=== PATIENT | male | born 1995 | race Caucasian/White ===

== ENCOUNTER 2022-11-30 21:15 | Emergency (ER) | payer OTHER, SELFPAY ==
[2022-11-30 21:26] VITALS: PULSE 103; RESP 16; TEMP 36.4; O2SAT 97; BMI 21.8
--- NOTE | 2022-11-30 21:36 | CT_ITS ---
[address] [address] Patient Name: JULEE MOISE MRN: [id number] date: 1995 Sex: M Assigned Patient Location: ER Current Patient Location: ER Accession/Order Number: [id number] Exam Date: 11/30/2022 22:25 Report Date: 11/30/2022 22:49 At the request of: ISAAC CHAPPELL Procedure: CT abdomen pelvis wo con EXAM: CT abdomen pelvis wo con HISTORY: left flank pain, difficulty urinating COMPARISON: None. TECHNIQUE: Axial CT imaging was performed through the abdomen and pelvis without intravenous contrast. Multiplanar reformats were performed. Dose reduction techniques were achieved by using automated exposure control and/or adjustment of mA and/or kV according to patient size and/or use of iterative reconstruction technique. FINDINGS: Lung bases: Lung bases are clear. No pleural effusion. GI upper: Unremarkable. Liver: Normal size and contour. Gallbladder: No significant abnormality. No cholelithiasis. Biliary system: No intra or extrahepatic biliary ductal dilatation. Pancreas: Unremarkable. Spleen: Normal size. Adrenal glands: Normal adrenal glands. Kidneys/ureters: There is mild left hydronephrosis and mild left hydroureter associated with a 3 mm calculus in the distal left ureter, just proximal to the bladder trigone. No additional intrarenal calculus is identified. No right nephrolithiasis. Vessels: No aneurysm. Retroperitoneum: No lymphadenopathy. Small bowel: No wall thickening or dilatation. Colon: No wall thickening or dilatation. Appendix: No findings of appendicitis. Peritoneal cavity: No free fluid or pneumoperitoneum. Lower : Unremarkable. Bones: No acute bony abnormality. Soft tissues: No acute finding. Additional findings: None. IMPRESSION: 3 mm distal left ureteral calculus with mild upstream obstructive changes. Electronically authenticated by: Jen ARROYO Date: 11/30/2022 22:49
--- NOTE | 2022-11-30 21:40 | ED_ITS ---
HPI - Abdominal Pain General Chief Complaint: Abdominal Pain Stated Complaint: ABD PAIN Time Seen by Provider: 11/30/22 21:27 Source: patient Mode of arrival: walk-in Limitations: no limitations History of Present Illness HPI narrative: patient suddenly developed pain along the left lower abdomen a couple of hours ago. He said that he saw blood in his urine and now it feels like my bladder is going to explode . Pain is severe and radiates from the left lower abdomen into the left flank. No fever or chills. No nausea or vomiting. No prior history of similar symptoms and no prior history of kidney stones. He drank alcohol and smoked marijuana to try and treat the pain. Related Data Previous Rx's Medication Instructions Recorded ketorolac 10 mg tablet 10 mg PO Q8H PRN pain #14 tabs 11/30/22 ondansetron 4 mg disintegrating 4 mg PO Q6H PRN nausea and 11/30/22 tablet vomiting #20 tabs tamsulosin 0.4 mg capsule 0.4 mg PO TID #14 caps 11/30/22 Allergies Allergy/AdvReac Type Severity Reaction Status Date / Time No Known Drug Allergies Allergy Verified 11/30/22 21:30 PFSH [facility] Social History Smoking status: Current every day smoker Exam Narrative Exam Narrative: Nurses notes and vital signs reviewed and patient is not hypoxic. afebrile General: Uncomfortable and moderately distressed. Skin: Warm, dry, no pallor noted. No rash to abdomen or flank. Eye: Pupils are equal, round and EOMI. No scleral icterus. Cardiovascular: Regular Rate and Rhythm without murmur, gallop or rub. Respiratory: No accessory muscle use or respiratory distress. Lungs are clear to auscultation, no wheezing, rales or rhonchi Back: No midline thoracic or lumbar vertebral tenderness. Left CVA tenderness Musculoskeletal: normal ROM, no calf or popliteal tenderness, no lower extremity edema/swelling GI: Abdomen is soft, non-distended. Normal bowel sounds. No masses appreciated. LLQ tenderness to palpation. No rebound, guarding, or rigidity noted. Neurological: A&O x4. No cranial nerve dysfunction observed. No truncal ataxia. Moves all extremities. Sensation intact. Psychiatric: Cooperative and interactive. Normal mood and affect. Constitutional Vital Signs - 24 hr 11/30/22 21:26 Temperature 97.5 F L Pulse Rate [Monitor] 103 H Respiratory Rate 16 Pulse Oximetry 97 Oxygen Delivery Method Room Air Course Vital Signs Vital signs: Vital Signs Temperature 97.5 F L 11/30/22 21:26 Pulse Rate 103 H 11/30/22 21:26 Respiratory Rate 16 11/30/22 21:26 Pulse Oximetry 97 11/30/22 21:26 Oxygen Delivery Method Room Air 11/30/22 21:26 Temperature 97.5 F L 11/30/22 21:26 Pulse Rate 103 H 11/30/22 21:26 Respiratory Rate 16 11/30/22 21:26 Pulse Oximetry 97 11/30/22 21:26 Oxygen Delivery Method Room Air 11/30/22 21:26 MDM - Abdominal Pain MDM Narrative Medical decision making narrative: peripheral IV established. The patient was ordered to receive IV Dilaudid and Toradol along with IV Zofran. CT revealed a 3mm distal left ureteral stone with upstream obstructive changes Afebrile, normal WBC< normal renal function, blood but no infection in urine Informed of results and discharged home with prescriptions for Flomax, Toradol, [place] and Zofran. referred to urologist for follow up. Lab Data Attestation: I reviewed the patient's lab results. Labs: Lab Results 11/30/22 11/30/22 Range/Units 21:35 21:51 WBC 10.0 (4.0-11.0) 10^3/uL RBC 4.86 (4.70-6.10) 10^6/uL Hgb 15.1 (14.0-18.0) g/dL Hct 42.7 (42.0-54.0) % MCV 87.9 (80.0-94.0) fL MCH 31.1 (25.9-34.0) pg MCHC 35.4 H (29.9-35.2) g/dL RDW 12.8 (11.0-15.0) % Plt Count 319 (150-450) 10^3/uL MPV 11.5 (9.5-13.5) fL Neut % (Auto) 53.1 (43.0-75.0) % Lymph % (Auto) 37.1 (20.5-60.0) % [place] % (Auto) 7.9 (1.7-12.0) % Eos % (Auto) 1.1 (0.9-7.0) % Baso % (Auto) 0.6 (0.2-2.0) % Neut # (Auto) 5.3 (1.4-6.5) 10^3/uL Lymph # (Auto) 3.7 (1.2-3.8) 10^3/uL [place] # (Auto) 0.8 (0.3-0.8) 10^3/uL Eos # (Auto) 0.1 (0.0-0.7) 10^3/uL Baso # (Auto) 0.1 (0.0-0.1) 10^3/uL Abs Immat Gran (auto) 0.02 (0.00-0.03) 10^3/uL Imm/Tot Granulo (auto) 0.2 (0.0-0.5) % Sodium 137 (136-145) mmol/L Potassium 3.6 (3.5-5.1) mmol/L Chloride 102 (98-107) mmol/L Carbon Dioxide 26.3 (21.0-32.0) mmol/L Anion Gap 12.3 BUN 18.0 (7.0-18.0) mg/dL Creatinine 1.18 (0.70-1.30) mg/dL Est GFR ( Amer) >60 (>=60) Est GFR (Non-Af Amer) >60 (>=60) BUN/Creatinine Ratio 15.3 Glucose 86 (74-106) mg/dL Calcium 9.5 (8.5-10.1) mg/dL Total Bilirubin 0.4 (0.2-1.0) mg/dL AST 22 (15-37) U/L ALT 29 (16-63) U/L Alkaline Phosphatase 123 H (46-116) U/L Total Protein 8.3 H (6.4-8.2) g/dL Albumin 4.6 (3.4-5.0) g/dL Globulin 3.7 g/dL Albumin/Globulin Ratio 1.2 Urine Color Yellow (YELLOW) Urine Clarity Clear (CLEAR) Urine pH 5.5 (5.0-9.0) Ur Specific Carbon >=1.030 A (1.005-1.025) Urine Protein Trace (NEG/TRACE) mg/dL Urine Glucose (UA) Negative (NEGATIVE) mg/dL Urine Ketones Negative (NEGATIVE) mg/dL Urine Occult Blood Large A (NEGATIVE) Urine Nitrite Negative (NEGATIVE) Urine Bilirubin Negative (NEGATIVE) Urine Urobilinogen 1.0 (0.2-1.0) EU/dL Ur Leukocyte Esterase Negative (NEGATIVE) Urine RBC 5-10 A (0-2) #/HPF Urine WBC 0-2 A (NONE SEEN) #/HPF Ur Squamous Epith Cells None seen (NONE/RARE) #/LPF Urine Crystals Seen A (None Seen) #/HPF Calcium Oxalate Crystal Rare Urine Bacteria None seen (NONE SEEN) #/HPF Urine Casts None seen (NONE SEEN) #/LPF Urine Mucus None seen (NONE SEEN) Ur Culture Indicated? No Imaging Data ct abd/pelvis: Radiologist's impression: Patient Name: JULEE MOISE MRN: [id number] date: 1995 Sex: M Assigned Patient Location: ER Current Patient Location: ER Accession/Order Number: [id number] Exam Date: 11/30/2022 22:25 Report Date: 11/30/2022 22:49 At the request of: ISAAC CHAPPELL Procedure: CT abdomen pelvis wo con EXAM: CT abdomen pelvis wo con HISTORY: left flank pain, difficulty urinating COMPARISON: None. TECHNIQUE: Axial CT imaging was performed through the abdomen and pelvis without intravenous contrast. Multiplanar reformats were performed. Dose reduction techniques were achieved by using automated exposure control and/or adjustment of mA and/or kV according to patient size and/or use of iterative reconstruction technique. FINDINGS: Lung bases: Lung bases are clear. No pleural effusion. GI upper: Unremarkable. Liver: Normal size and contour. Gallbladder: No significant abnormality. No cholelithiasis. Biliary system: No intra or extrahepatic biliary ductal dilatation. Pancreas: Unremarkable. Spleen: Normal size. Adrenal glands: Normal adrenal glands. Kidneys/ureters: There is mild left hydronephrosis and mild left hydroureter associated with a 3 mm calculus in the distal left ureter, just proximal to the bladder trigone. No additional intrarenal calculus is identified. No right nephrolithiasis. Vessels: No aneurysm. Retroperitoneum: No lymphadenopathy. Small bowel: No wall thickening or dilatation. Colon: No wall thickening or dilatation. Appendix: No findings of appendicitis. Peritoneal cavity: No free fluid or pneumoperitoneum. Lower : Unremarkable. Bones: No acute bony abnormality. Soft tissues: No acute finding. Additional findings: None. IMPRESSION: 3 mm distal left ureteral calculus with mild upstream obstructive changes. Electronically authenticated by: Jen ARROYO Date: 11/30/2022 22:49 Discharge Plan Discharge Chief Complaint: Abdominal Pain Clinical Impression: Calculus of distal left ureter, Renal colic on left side Patient Disposition: Home, Self-Care Time of Disposition Decision: 23:07 Prescriptions / Home Meds: New ketorolac 10 mg tablet 10 mg PO Q8H PRN (Reason: pain) Qty: 14 0RF ondansetron 4 mg tablet,disintegrating 4 mg PO Q6H PRN (Reason: nausea and vomiting) Qty: 20 0RF tamsulosin 0.4 mg capsule 0.4 mg PO TID Qty: 14 0RF Instructions: Ureteral Stones (ED) Stand Alone Forms: Portal Instructions
[2022-11-30] MEDS: 0.9 % SODIUM CHLORIDE 1,000 ML 999 ML IV (21:46)
[2022-11-30] MEDS: HYDROMORPHONE HCL 1 MG/ML CARTRIDGE IVP (21:47)
[2022-11-30] MEDS: ONDANSETRON PF 4 MG/2 ML VIAL IV (21:47)
[2022-11-30] MEDS: KETOROLAC TROMETHAMINE 30 MG/ML VIAL IVP (21:47)
[2022-11-30 22:01] LABS: Basophils Absolute Auto 0.1 10^3/uL (0.0-0.1); Basophils Percent Auto 0.6 % (0.2-2.0); Eosinophils Absolute Auto 0.1 10^3/uL (0.0-0.7); Eosinophils Percent Auto 1.1 % (0.9-7.0); Hematocrit 42.7 % (42.0-54.0); Hemoglobin 15.1 g/dL (14.0-18.0); Immature Granulocytes Abs Auto 0.02 10^3/uL (0.00-0.03); Immature Granulocytes Pct Auto 0.2 % (0.0-0.5); Lymphocytes Absolute Auto 3.7 10^3/uL (1.2-3.8); Lymphocytes Percent Auto 37.1 % (20.5-60.0); Mean Corpuscular HGB Conc 35.4 g/dL (29.9-35.2); Mean Corpuscular Hemoglobin 31.1 pg (25.9-34.0); Mean Corpuscular Volume 87.9 fL (80.0-94.0); Mean Platelet Volume 11.5 fL (9.5-13.5); Monocytes Absolute Auto 0.8 10^3/uL (0.3-0.8); Monocytes Percent Auto 7.9 % (1.7-12.0); Neutrophils Absolute Auto 5.3 10^3/uL (1.4-6.5); Neutrophils Percent Auto 53.1 % (43.0-75.0); Platelet Count 319 10^3/uL (150-450); Red Blood Count 4.86 10^6/uL (4.70-6.10); Red Cell Distribution Width 12.8 % (11.0-15.0)
[2022-11-30 22:05] LABS: Bilirubin Urine NEGATIVE (NEGATIVE); Blood Urine LARGE (NEGATIVE); Clarity Urine CLEAR (CLEAR); Color Urine YELLOW (YELLOW); Glucose Urine UA NEGATIVE (NEGATIVE); Ketones Urine NEGATIVE (NEGATIVE); Leukocyte Esterase Urine NEGATIVE (NEGATIVE); Nitrite Urine NEGATIVE (NEGATIVE); Protein Urine TRACE mg/dL (NEG/TRACE); Specific Gravity Urine >=1.030 (1.005-1.025); pH Urine 5.5 (5.0-9.0)
[2022-11-30 22:07] LABS: Urine Microscopic Indicated YES
[2022-11-30 22:16] LABS: Alanine Aminotransferase 29 U/L (16-63); Albumin Globulin Ratio 1.2; Albumin Level 4.6 g/dL (3.4-5.0); Alkaline Phosphatase 123 U/L (46-116); Anion Gap 12.3; Aspartate Amino Transferase 22 U/L (15-37); BUN Creatinine Ratio 15.3; Bilirubin Total 0.4 mg/dL (0.2-1.0); Calcium 9.5 mg/dL (8.5-10.1); Carbon Dioxide 26.3 mmol/L (21.0-32.0); Chloride 102 mmol/L (98-107); Estimated GFR (African America >60 (>=60); Estimated GFR (Non-African Ame >60 (>=60); Globulin 3.7 g/dL; Glucose 86 mg/dL (74-106); Potassium 3.6 mmol/L (3.5-5.1); Sodium 137 mmol/L (136-145); Total Protein 8.3 g/dL (6.4-8.2)
[2022-11-30 22:18] LABS: WBC Urine 0-2 #/HPF (NONE SEEN)
[2022-11-30 22:19] LABS: Bacteria Urine NONE SEEN #/HPF (NONE SEEN); Calcium Oxalate Crystals Urine RARE; Cast Seen? NONE SEEN #/LPF (NONE SEEN); Crystals Seen? Seen #/HPF (None Seen); Mucus Urine NONE SEEN (NONE SEEN); Squamous Epithelial Cell Urine NONE SEEN #/LPF (NONE/RARE); Urine Culture Indicated NO
== END 2022-11-30 23:34 | disposition home or self-care (01) ==
PROVIDERS: Emergency Provider Emergency Medicine
DX: N20.1 Calculus of ureter (principal); F17.210 Nicotine dependence, cigarettes, uncomplicated
CPT/HCPCS: 36415; 74176; 80053; 81003; 81015; 85025; 96374; 96375; 99284; J1170

== ENCOUNTER 2022-12-07 17:31 | Emergency (ER) | payer OTHER, SELFPAY ==
[2022-12-07 17:39] VITALS: BP 130/99; PULSE 78; RESP 20; TEMP 36.4; O2SAT 96; BMI 22.4
--- NOTE | 2022-12-07 17:46 | ED.GENADUL1 ---
HPI - General Adult General Chief complaint: Urogenital-Male Stated complaint: flank pain Time Seen by Provider: 12/07/22 17:44 Source: patient and family History of Present Illness HPI narrative: this patient's here complaining of worsening severe left lower quadrant pain. He was here over the holiday weekend November 30 and had 3 mm kidney stone. To his knowledge she's not pass it. He said the pain got much more worse today. He took his last Percocet today. He has not followed up with urology yet. He's not had fever shakes or chills. No new trauma or injury or event since the holiday when he was here previously.he's been taking his Flomax 0.4 mg three times a day as instructed. Related Data Previous Rx's Medication Instructions Recorded ketorolac 10 mg tablet 10 mg PO Q8H PRN pain #14 tabs 11/30/22 ondansetron 4 mg disintegrating 4 mg PO Q6H PRN nausea and 11/30/22 tablet vomiting #20 tabs tamsulosin 0.4 mg capsule 0.4 mg PO TID #14 caps 11/30/22 Allergies Allergy/AdvReac Type Severity Reaction Status Date / Time No Known Drug Allergies Allergy Verified 12/07/22 17:39 PFSH PFSH Social History Smoking status: Current every day smoker Exam Narrative Exam Narrative: This document has been composed with a new electronic medical record and [employer] voice recognition system. This document may not fully inaccurately reflect the entirety of the patient encounter. Awake alert very uncomfortable holding his left lower quadrant moving about on the cart. Examination of the abdomen in the supine position shows it to be flat soft and supple no peritoneal findings good bowel sounds. No guarding rebound or rigidity. No evidence of abdominal wall herniation. Pulse time masses. Perfusion is lower extremity seems to be normal. The back and flank areas are asymptomatic and normal to visual inspection Medical Decision Making MDM Narrative Medical decision making narrative: the patient's urinalysis does not show any indication of infection however CT scan shows a persistent stone at the distal left ureter with mild hydronephrosis and no substantial change from previous CT scan one week ago. He was medicated and did have improvement. Since he has not passed a stone one week he probably should follow-up with the urologist and will give him referral to Dr. Bartlett. Discharge Plan Discharge Chief Complaint: Urogenital-Male Clinical Impression: Calculus of distal left ureter Patient Disposition: Home, Self-Care Time of Disposition Decision: 18:43 Prescriptions / Home Meds: No Action ketorolac 10 mg tablet 10 mg PO Q8H PRN (Reason: pain) Qty: 14 0RF ondansetron 4 mg tablet,disintegrating 4 mg PO Q6H PRN (Reason: nausea and vomiting) Qty: 20 0RF tamsulosin 0.4 mg capsule 0.4 mg PO TID Qty: 14 0RF Instructions: Kidney Stones (ED) Additional Instructions: call and follow up with Dr. Bartlett. Zofran for nausea and Toradol every six hours/Percocet for severe pain Stand Alone Forms: Portal Instructions Referrals: Physician,Non-Staff, MD [Primary Care Provider] - 1 week
--- NOTE | 2022-12-07 17:48 | CT_ITS ---
The [address] [address] Patient Name: JULEE MOISE MRN: [id number] date: 1995 Sex: M Assigned Patient Location: ER Current Patient Location: Accession/Order Number: [id number] Exam Date: 12/07/2022 17:58 Report Date: 12/07/2022 18:23 At the request of: CARLOS RUBY Procedure: CT abdomen pelvis wo con EXAM: CT scan of the abdomen and pelvis without contrast. Dose reduction technique used: Automated exposure control and/or adjustment of the mA and/or kV according to patient size and/or use of iterative reconstruction technique. REASON FOR EXAM: kidney stone COMPARISON: CT scan dated 11/30/2022 FINDINGS: Left ureterovesical junction 2 to 3 mm stone with mild left hydroureteronephrosis, this is not significantly changed since 11/30/2022. No evidence of appendicitis. No free fluid in the abdomen or pelvis. No free intraperitoneal air. No dilated or thickened loops of small bowel or colon. Liver, pancreas, spleen, bilateral kidneys, and bilateral adrenal glands are otherwise unremarkable within the limitations of noncontrast CT. No lymphadenopathy in the abdomen or pelvis. Remainder unremarkable. CT/CT abdomen pelvis wo con IMPRESSION: Left ureterovesical junction 2 to 3 mm stone with mild left hydroureteronephrosis, this is not significantly changed since 11/30/2022. Electronically authenticated by: JIA PENNINGTON Date: 12/07/2022 18:23
[2022-12-07] MEDS: HYDROMORPHONE HCL 1 MG/ML CARTRIDGE IVP (18:04)
[2022-12-07] MEDS: 0.9 % SODIUM CHLORIDE 1,000 ML 100 ML IV (18:05)
[2022-12-07 18:13] LABS: Basophils Absolute Auto 0.1 10^3/uL (0.0-0.1); Basophils Percent Auto 0.6 % (0.2-2.0); Bilirubin Urine NEGATIVE (NEGATIVE); Blood Urine SMALL (NEGATIVE); Clarity Urine CLEAR (CLEAR); Color Urine LT. YELLOW (YELLOW); Eosinophils Absolute Auto 0.2 10^3/uL (0.0-0.7); Eosinophils Percent Auto 2.1 % (0.9-7.0); Glucose Urine UA NEGATIVE (NEGATIVE); Hematocrit 40.5 % (42.0-54.0); Hemoglobin 13.8 g/dL (14.0-18.0); Immature Granulocytes Abs Auto 0.04 10^3/uL (0.00-0.03); Immature Granulocytes Pct Auto 0.4 % (0.0-0.5); Ketones Urine NEGATIVE (NEGATIVE); Leukocyte Esterase Urine TRACE (NEGATIVE); Lymphocytes Absolute Auto 2.2 10^3/uL (1.2-3.8); Lymphocytes Percent Auto 24.1 % (20.5-60.0); Mean Corpuscular HGB Conc 34.1 g/dL (29.9-35.2); Mean Corpuscular Hemoglobin 30.5 pg (25.9-34.0); Mean Corpuscular Volume 89.6 fL (80.0-94.0); Mean Platelet Volume 11.8 fL (9.5-13.5); Monocytes Absolute Auto 0.8 10^3/uL (0.3-0.8); Monocytes Percent Auto 8.9 % (1.7-12.0); Neutrophils Absolute Auto 5.9 10^3/uL (1.4-6.5); Neutrophils Percent Auto 63.9 % (43.0-75.0); Nitrite Urine NEGATIVE (NEGATIVE); Platelet Count 239 10^3/uL (150-450); Protein Urine NEGATIVE (NEG/TRACE); Red Blood Count 4.52 10^6/uL (4.70-6.10); Red Cell Distribution Width 12.9 % (11.0-15.0); Urobilinogen Urine 0.2 EU/dL (0.2-1.0); White Blood Count 9.3 10^3/uL (4.0-11.0); pH Urine 6.5 (5.0-9.0)
[2022-12-07 18:14] LABS: Urine Microscopic Indicated YES
[2022-12-07 18:21] LABS: Anion Gap 11.1; BUN Creatinine Ratio 13.3; Calcium 9.1 mg/dL (8.5-10.1); Carbon Dioxide 28.1 mmol/L (21.0-32.0); Chloride 100 mmol/L (98-107); Estimated GFR (African America >60 (>=60); Estimated GFR (Non-African Ame >60 (>=60); Glucose 103 mg/dL (74-106); Potassium 4.2 mmol/L (3.5-5.1); Sodium 135 mmol/L (136-145)
[2022-12-07 18:29] LABS: Bacteria Urine TRACE #/HPF (NONE SEEN); Mucus Urine NONE SEEN (NONE SEEN); RBC Urine 0-2 #/HPF (0-2)
[2022-12-07 18:30] LABS: Cast Seen? NONE SEEN #/LPF (NONE SEEN); Crystals Seen? None Seen #/HPF (None Seen); Squamous Epithelial Cell Urine RARE #/LPF (NONE/RARE); Urine Culture Indicated YES
== END 2022-12-07 19:00 | disposition home or self-care (01) ==
PROVIDERS: Emergency Provider Emergency Medicine Emergency Medical Services
DX: N13.2 Hydronephrosis with renal and ureteral calculous obstruction (principal); F17.210 Nicotine dependence, cigarettes, uncomplicated
CPT/HCPCS: 36415; 74176; 80048; 81003; 81015; 85025; 87086; 96374; 99285; J1170

== ENCOUNTER 2023-01-06 18:48 | Emergency (ER) | payer OTHER, SELFPAY ==
[2023-01-06] VITALS (10 sets, daily range): BP systolic 122–136; BP diastolic 79–90; PULSE 67–90; RESP 12–24; TEMP 36.8; O2SAT 99; BMI 23.0
--- NOTE | 2023-01-06 19:52 | CT_ITS ---
[address] [address] Patient Name: JULEE MOISE MRN: [id number] date: 1995 Sex: M Assigned Patient Location: ER Current Patient Location: .[facility] Accession/Order Number: [id number] Exam Date: 01/06/2023 20:08 Report Date: 01/06/2023 20:29 At the request of: ANGEL RUCKER Procedure: CT head/brain wo con EXAM: CT head/brain wo con HISTORY: seizure COMPARISON: None. TECHNIQUE: Axial CT scans through the head were obtained without IV contrast administration. Dose reduction techniques were achieved by using: automated exposure control and/or adjustment of mA and /or kV according to patient size and/or use of iterative reconstruction technique. FINDINGS: There is no acute intracranial hemorrhage or abnormal extra-axial fluid collection. No mass effect or midline shift is seen. There is no evidence of large acute territorial infarction. There is no hydrocephalus. To the limit of CT, the posterior fossa appears unremarkable. The calvaria and extra cranial soft tissues are unremarkable. The visualized orbits show no abnormal mass. The visualized paranasal sinuses show no air-fluid level. Mastoid air cells are clear. CT/CT head/brain wo con IMPRESSION: No acute intracranial process. Electronically authenticated by: ALLISON REED Date: 01/06/2023 20:29
--- NOTE | 2023-01-06 19:52 | ECG_ITS ---
The [facility] Test Date: 2023-01-06 Pat Name: JULEE MOISE Department: Room: - Gender: Male Copyholder: : 1995 Requested By: RUSS HERNANDEZ Order Number: [id number] Reading MD: RUSS HERNANDEZ Measurements Intervals [place] Rate: 77 P: 79 KS: 162 QRS: 93 QRSD: 86 T: 70 QT: 354 QTc: 386 Interpretive Statements 1100 Sinus rhythm 7102 Moderate right axis deviation 9110 normal ECG No previous ECG available for comparison Electronically Signed On 01-07-2023 6:26:30 EDT by RUSS HERNANDEZ
[2023-01-06 20:51] LABS: Bilirubin Urine NEGATIVE (NEGATIVE); Blood Urine NEGATIVE (NEGATIVE); Clarity Urine CLEAR (CLEAR); Color Urine LT. YELLOW (YELLOW); Glucose Urine UA NEGATIVE (NEGATIVE); Ketones Urine NEGATIVE (NEGATIVE); Leukocyte Esterase Urine SMALL (NEGATIVE); Nitrite Urine NEGATIVE (NEGATIVE); Protein Urine NEGATIVE (NEG/TRACE); Specific Gravity Urine 1.015 (1.005-1.025)
--- NOTE | 2023-01-06 20:51 | ED_ITS ---
HPI - Seizure General Chief Complaint: Seizure Stated Complaint: SEIZURES Time Seen by Provider: 01/06/23 19:04 History of Present Illness HPI Narrative: patient is a 27-year-old male who presents to the emergency department with concern for possible seizure activity. Patient has no history of seizure disorder. He states yesterday he had four qfuo-hy-ohux episodes where he was observed shaking and tensing up. He states he fell into a table and did hit his head. This was witnessed by family members. He states he did not want to be evaluated yesterday because he was scared of what was wrong . He states he is under a lot of stress and thinks this may be contributing to his symptoms. He states he is due to report to [facility] and is going to group home. at this time he has no focal medical complaints. Seizure History: No Place: outdoors Related Data Previous Rx's Medication Instructions Recorded ketorolac 10 mg tablet 10 mg PO Q8H PRN pain #14 tabs 11/30/22 ondansetron 4 mg disintegrating 4 mg PO Q6H PRN nausea and 11/30/22 tablet vomiting #20 tabs tamsulosin 0.4 mg capsule 0.4 mg PO TID #14 caps 11/30/22 Allergies Allergy/AdvReac Type Severity Reaction Status Date / Time No Known Drug Allergies Allergy Verified 12/07/22 17:39 Review of Systems ROS0 Constitutional Denies: fever or chills Ears, nose, mouth, and throat Denies: throat pain Cardiovascular Denies: chest pain Respiratory Denies: shortness of breath or cough Gastrointestinal Denies: nausea or vomiting Musculoskeletal Denies: back pain or neck pain Integumentary/Breast Denies: rash Neurological Denies: headache Psychiatric Reports: anxiety PFSH PFSH Social History Smoking status: Current some day smoker Exam Narrative Exam Narrative: Gen.: Awake, alert, in no distress Head: Normocephalic, atraumatic, small abrasion to the right tenriism with no Alcocer sign or raccoon eyes ENT: Moist mucous membranes; no dental injury Neck: C-spine nontender Respiratory: No respiratory distress, lungs clear bilaterally Cardio: Regular rate and rhythm Extremities: Moves extremities equally, no injuries noted Psych: Normal mood and affect Neuro: No focal neuro deficit Skin: Warm, dry, intact Constitutional Vital Signs, click to edit/add: Last Vital Signs Temp 98.2 F 01/06/23 18:56 Pulse 68 01/06/23 21:49 Resp 22 01/06/23 21:49 BP 136/79 01/06/23 21:51 Pulse Ox 99 01/06/23 18:56 O2 Del Method Room Air 01/06/23 18:56 Course Vital Signs Vital signs: Vital Signs Temperature 98.2 F 01/06/23 18:56 Pulse Rate 80 01/06/23 18:56 Respiratory Rate 24 01/06/23 18:56 Blood Pressure 122/90 01/06/23 18:56 Pulse Oximetry 99 01/06/23 18:56 Oxygen Delivery Method Room Air 01/06/23 18:56 Temperature 98.2 F 01/06/23 18:56 Pulse Rate 68 01/06/23 21:49 Respiratory Rate 22 01/06/23 21:49 Blood Pressure 136/79 01/06/23 21:51 Pulse Oximetry 99 01/06/23 18:56 Oxygen Delivery Method Room Air 01/06/23 18:56 MDM - Seizure MDM Narrative Medical decision making narrative: patient was sent for CT of the brain which is unremarkable. EKG, lab studies are also within normal limits. Patient was noted to have white blood cells on his urine specimen, he was recently treated for a kidney stone. He had a similar urine specimen one month ago from this emergency department, his urine culture was negative with no growth. As he has no urinary symptoms at this time, patient will now be treated for urinary tract infection until we receive urine culture result. His urine specimen was positive for amphetamines, methamphetamines, cocaine and cannabis. I had a discussion with the patient at bedside that he should follow-up with neurology for further evaluation and testing, but using multiple drugs in combination can also cause seizure-like activity. He verbalizes understanding. He was encouraged to take Motrin and Tylenol for muscle aching, follow-up with neurology and return to the Emergency Room if symptoms change or worsen. He has no focal neuro deficits and is resting comfortably on reevaluation at discharge. Medical Records Attestation: I reviewed the patient's medical records. Lab Data Attestation: I reviewed the patient's lab results. Labs: Lab Results 01/06/23 01/06/23 Range/Units 20:30 20:43 WBC 6.1 (4.0-11.0) 10^3/uL RBC 4.82 (4.70-6.10) 10^6/uL Hgb 15.0 (14.0-18.0) g/dL Hct 43.9 (42.0-54.0) % MCV 91.1 (80.0-94.0) fL MCH 31.1 (25.9-34.0) pg MCHC 34.2 (29.9-35.2) g/dL RDW 13.1 (11.0-15.0) % Plt Count 272 (150-450) 10^3/uL MPV 10.4 (9.5-13.5) fL Neut % (Auto) 41.8 L (43.0-75.0) % Lymph % (Auto) 45.0 (20.5-60.0) % [place] % (Auto) 7.9 (1.7-12.0) % Eos % (Auto) 3.8 (0.9-7.0) % Baso % (Auto) 1.3 (0.2-2.0) % Neut # (Auto) 2.5 (1.4-6.5) 10^3/uL Lymph # (Auto) 2.7 (1.2-3.8) 10^3/uL [place] # (Auto) 0.5 (0.3-0.8) 10^3/uL Eos # (Auto) 0.2 (0.0-0.7) 10^3/uL Baso # (Auto) 0.1 (0.0-0.1) 10^3/uL Abs Immat Gran (auto) 0.01 (0.00-0.03) 10^3/uL Imm/Tot Granulo (auto) 0.2 (0.0-0.5) % PT 10.9 (9.0-11.6) sec INR 1.03 Sodium 139 (136-145) mmol/L Potassium 3.6 (3.5-5.1) mmol/L Chloride 102 (98-107) mmol/L Carbon Dioxide 30.0 (21.0-32.0) mmol/L Anion Gap 10.6 BUN 8.0 (7.0-18.0) mg/dL Creatinine 0.94 (0.70-1.30) mg/dL Est GFR ( Amer) >60 (>=60) Est GFR (Non-Af Amer) >60 (>=60) BUN/Creatinine Ratio 8.5 Glucose 77 (74-106) mg/dL Calcium 8.6 (8.5-10.1) mg/dL Magnesium 2.2 (1.8-2.4) mg/dL Total Bilirubin 0.4 (0.2-1.0) mg/dL AST 16 (15-37) U/L ALT 39 (16-63) U/L Alkaline Phosphatase 120 H (46-116) U/L Total Protein 7.6 (6.4-8.2) g/dL Albumin 4.0 (3.4-5.0) g/dL Globulin 3.6 g/dL Albumin/Globulin Ratio 1.1 Urine Color Lt. yellow (YELLOW) Urine Clarity Clear (CLEAR) Urine pH 7.0 (5.0-9.0) Ur Specific [place] 1.015 (1.005-1.025) Urine Protein Negative (NEG/TRACE) mg/dL Urine Glucose (UA) Negative (NEGATIVE) mg/dL Urine Ketones Negative (NEGATIVE) mg/dL Urine Occult Blood Negative (NEGATIVE) Urine Nitrite Negative (NEGATIVE) Urine Bilirubin Negative (NEGATIVE) Urine Urobilinogen 1.0 (0.2-1.0) EU/dL Ur Leukocyte Esterase Small A (NEGATIVE) Urine RBC 0-2 (0-2) #/HPF Urine WBC 5-10 A (NONE SEEN) #/HPF Ur Squamous Epith Cells Few A (NONE/RARE) #/LPF Urine Crystals Seen A (None Seen) #/HPF Amorphous Sediment Many Urine Bacteria Large A (NONE SEEN) #/HPF Urine Casts None seen (NONE SEEN) #/LPF Urine Mucus None seen (NONE SEEN) Ur Culture Indicated? Yes Urine Opiates Screen Negative (NEGATIVE) Ur Buprenorphine Scrn Negative (NEGATIVE) Ur Oxycodone Screen Negative (NEGATIVE) Urine Methadone Screen Negative (NEGATIVE) Ur Propoxyphene Screen Negative (NEGATIVE) Ur Barbiturates Screen Negative (NEGATIVE) U Tricyclic Antidepress Negative (NEGATIVE) Ur Phencyclidine Scrn Negative (NEGATIVE) Ur Amphetamines Screen Positive A (NEGATIVE) U Methamphetamines Scrn Positive A (NEGATIVE) U Benzodiazepines Scrn Negative (NEGATIVE) Urine Cocaine Screen Positive A (NEGATIVE) U Cannabinoids Screen Positive A (NEGATIVE) Ethanol Quant <3 mg/dL ECG Data Attestation: I personally reviewed and interpreted this ECG as follows: (normal sinus rhythm at a rate of seventy-seven, early repolarization noted with no acute ST elevation or ectopy. EKG reviewed by attending physician) ECG interpretation date: 01/06/23 ECG interpretation time: 20:58 Discharge Plan Discharge Chief Complaint: Seizure Clinical Impression: Seizure-like activity Patient Disposition: Home, Self-Care Time of Disposition Decision: 21:39 Condition: Good Prescriptions / Home Meds: No Action ketorolac 10 mg tablet 10 mg PO Q8H PRN (Reason: pain) Qty: 14 0RF ondansetron 4 mg tablet,disintegrating 4 mg PO Q6H PRN (Reason: nausea and vomiting) Qty: 20 0RF tamsulosin 0.4 mg capsule 0.4 mg PO TID Qty: 14 0RF Instructions: New-Onset Seizure in Adults (ED) Additional Instructions: Follow up with [facility] [phone] Stand Alone Forms: Portal Instructions Referrals: Physician,Non-Staff, [Primary Care Provider] - 1 week Discharge Date/Time: 01/06/23 21:55
[2023-01-06 20:53] LABS: Basophils Absolute Auto 0.1 10^3/uL (0.0-0.1); Basophils Percent Auto 1.3 % (0.2-2.0); Eosinophils Absolute Auto 0.2 10^3/uL (0.0-0.7); Eosinophils Percent Auto 3.8 % (0.9-7.0); Hematocrit 43.9 % (42.0-54.0); Immature Granulocytes Abs Auto 0.01 10^3/uL (0.00-0.03); Immature Granulocytes Pct Auto 0.2 % (0.0-0.5); Lymphocytes Absolute Auto 2.7 10^3/uL (1.2-3.8); Mean Corpuscular HGB Conc 34.2 g/dL (29.9-35.2); Mean Corpuscular Hemoglobin 31.1 pg (25.9-34.0); Mean Corpuscular Volume 91.1 fL (80.0-94.0); Mean Platelet Volume 10.4 fL (9.5-13.5); Monocytes Absolute Auto 0.5 10^3/uL (0.3-0.8); Monocytes Percent Auto 7.9 % (1.7-12.0); Neutrophils Absolute Auto 2.5 10^3/uL (1.4-6.5); Neutrophils Percent Auto 41.8 % (43.0-75.0); Platelet Count 272 10^3/uL (150-450); Red Blood Count 4.82 10^6/uL (4.70-6.10); Red Cell Distribution Width 13.1 % (11.0-15.0); White Blood Count 6.1 10^3/uL (4.0-11.0)
[2023-01-06 20:54] LABS: Urine Microscopic Indicated YES
[2023-01-06 21:00] LABS: Amphetamine Screen Urine POSITIVE (NEGATIVE); Barbiturates Screen Urine NEGATIVE (NEGATIVE); Benzodiazepines Screen Urine NEGATIVE (NEGATIVE); Buprenorphine Screen Urine NEGATIVE (NEGATIVE); Cannabinoid Screen Urine POSITIVE (NEGATIVE); Cocaine Screen Urine POSITIVE (NEGATIVE); Methadone Screen Urine NEGATIVE (NEGATIVE); Methamphetamines Screen Urine POSITIVE (NEGATIVE); Opiate Screen Urine NEGATIVE (NEGATIVE); Oxycodone Screen Urine NEGATIVE (NEGATIVE); Phencyclidine Screen Urine NEGATIVE (NEGATIVE); Tricyclic Antidepressant Urine NEGATIVE (NEGATIVE)
[2023-01-06 21:05] LABS: Amorphous Sediment Urine MANY; Bacteria Urine LARGE #/HPF (NONE SEEN); Cast Seen? NONE SEEN #/LPF (NONE SEEN); Crystals Seen? Seen #/HPF (None Seen); Mucus Urine NONE SEEN (NONE SEEN); RBC Urine 0-2 #/HPF (0-2); Squamous Epithelial Cell Urine FEW #/LPF (NONE/RARE)
[2023-01-06 21:06] LABS: Urine Culture Indicated YES
[2023-01-06 21:09] LABS: Alanine Aminotransferase 39 U/L (16-63); Albumin Globulin Ratio 1.1; Alkaline Phosphatase 120 U/L (46-116); Anion Gap 10.6; Aspartate Amino Transferase 16 U/L (15-37); BUN Creatinine Ratio 8.5; Bilirubin Total 0.4 mg/dL (0.2-1.0); Calcium 8.6 mg/dL (8.5-10.1); Chloride 102 mmol/L (98-107); Estimated GFR (African America >60 (>=60); Estimated GFR (Non-African Ame >60 (>=60); Ethanol <3 mg/dL; Globulin 3.6 g/dL; Glucose 77 mg/dL (74-106); Magnesium 2.2 mg/dL (1.8-2.4); Potassium 3.6 mmol/L (3.5-5.1); Sodium 139 mmol/L (136-145); Total Protein 7.6 g/dL (6.4-8.2)
[2023-01-06 21:15] LABS: INR 1.03; Prothrombin Time 10.9 sec (9.0-11.6)
== END 2023-01-06 21:55 | disposition home or self-care (01) ==
PROVIDERS: Physician Assistant; Emergency Provider Internal Medicine
DX: R56.9 Unspecified convulsions (principal); F17.210 Nicotine dependence, cigarettes, uncomplicated; Z87.442 Personal history of urinary calculi
CPT/HCPCS: 36415; 70450; 80053; 80307; 80320; 81001; 83735; 85025; 85610; 87086; 93005; 99285